=== PATIENT | female | born 1985 | race African-American/Black ===

== ENCOUNTER 2018-10-07 01:03 | Emergency (ER) | payer OTHER ==
[~2018-10-07] VITALS: Ht 162.6 cm; Wt 60.3 kg
--- NOTE | 2018-10-07 01:23 | ED.ADGEN ---
Past History Past Medical History: STD, UTI Past Medical History G4, T1, Induced 1, Spontaneous Miscarry 1 Adult General Chief Complaint Chief Complaint ".. I think . I am about 4 weeks .. and I started having some abdomen cramping.. and spotting.. this would be my 4 th ... I had one vaginal .. and one induced and one spontaneous miscarry.. I made an apt. at [place] .. 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 Patient localizes pain to lower pelvic area. Rebound is not localized other than low pelvic. No psoas sign. Pt. has had 4 pregnancies. One live vaginally. One induced . And 1 miscarriage. Patient last prior to this one was 1999. Patient has had previous history of Chlamydia in approximately 1999. No hx of trauma. No travel. No hx immunosuppression. Recent diagnosis of UTI. Patient normally follows at [place]. Patient blood type is B+. Patient has not had abdomen ultrasound as yet, but did make an appointment at the women's clinic in [place] Review of Systems Review of Systems Constitutional: Denies fever or chills [] Eyes: Denies change in visual acuity, redness, or eye pain [] HENT: Denies nasal congestion or sore throat [] Respiratory: Denies cough or shortness of breath [] Cardiovascular: No additional information not addressed in [facility] [] GI: Complaints of abdominal pain. Denies nausea, vomiting, bloody stools or diarrhea [] : Denies dysuria or hematuria []Vaginal spotting. Musculoskeletal: Denies back pain or joint pain [] Integument: Denies rash or skin lesions [] Neurologic: Denies headache, focal weakness or sensory changes [] Endocrine: Denies polyuria or polydipsia [] All other systems were reviewed and found to be within normal limits, except as documented in this note. Family History Family History Non-contributory Current Medications Current Medications Current Medications Medications (Trade) Dose Ordered Sig/Deven Start Time Stop Time Status Last Admin Dose Admin Lactated Ringer's 1,000 ml @ 1,000 mls/hr Q1H 10/07/18 01:30 10/07/18 02:29 DC Oxycodone/ Acetaminophen (Percocet 5/325) 2 tab 1X ONCE 10/07/18 04:15 10/07/18 04:16 UNV 10/07/18 04:22 2 TAB Allergies Allergies Allergies Coded Allergies Type Severity Reaction Last Updated Verified No Known Drug Allergies 10/07/18 No Physical Exam Physical Exam Constitutional: Well developed, well nourished,moderated distress, non-toxic appearance. [] HENT: Normocephalic, atraumatic, bilateral external ears normal, oropharynx moist, no oral exudates, nose normal. [] Eyes: PERRLA, EOMI, conjunctiva normal, no discharge. [] Neck: Normal range of motion, no tenderness, supple, no stridor. [] Cardiovascular:Heart rate regular rhythm, no murmur [] Lungs & Thorax: Bilateral breath sounds equal at apexes on auscultation [] Abdomen: Bowel sounds normal, soft, pelvic tenderness, no masses, no pulsatile masses. [] Pelvic- bleeding from os. Os appear closed. Some Rt. adnexal ten derness. No true rebound localization. Skin: Warm, dry, no erythema, no rash. [] Back: No tenderness, no CVA tenderness. [] Extremities: No tenderness, no cyanosis, no clubbing, ROM intact, no edema. [] No psoas sign. Neurologic: Alert and oriented X 3, normal motor function, normal sensory functi on, no focal deficits noted. [] Psychologic: Affect anxious, judgement normal, mood normal. [] Current Patient Data Lab Results Laboratory Tests Test 10/07/18 02:05 10/07/18 04:15 White Blood Count 7.5 x10^3/uL (4.0-11.0) Red Blood Count 4.43 x10^6/uL (3.50-5.40) Hemoglobin 13.2 g/dL (12.0-15.5) Hematocrit 38.9 % (36.0-47.0) Mean Corpuscular Volume 88 fL (79-100) Mean Corpuscular Hemoglobin 30 pg (25-35) Mean Corpuscular Hemoglobin Concent 34 g/dL (31-37) Red Cell Distribution Width 13.0 % (11.5-14.5) Platelet Count 339 x10^3/uL (140-400) Neutrophils (%) (Auto) 50 % (31-73) Lymphocytes (%) (Auto) 42 % (24-48) Monocytes (%) (Auto) 6 % (0-9) Eosinophils (%) (Auto) 3 % (0-3) Basophils (%) (Auto) 0 % (0-3) Neutrophils # (Auto) 3.7 x10^3uL (1.8-7.7) Lymphocytes # (Auto) 3.1 x10^3/uL (1.0-4.8) Monocytes # (Auto) 0.4 x10^3/uL (0.0-1.1) Eosinophils # (Auto) 0.2 x10^3/uL (0.0-0.7) Basophils # (Auto) 0.0 x10^3/uL (0.0-0.2) Prothrombin Time 10.1 SEC (9.4-11.4) Prothrombin Time INR 1.0 (0.9-1.1) PTT 25 SEC (23-33) Maternal Serum HCG Beta Subunit 1880 mIU/mL (0-6) H Sodium Level 138 mmol/L (136-145) Potassium Level 3.7 mmol/L (3.5-5.1) Chloride Level 104 mmol/L (98-107) Carbon Dioxide Level 25 mmol/L (21-32) Anion Gap 9 (6-14) Blood Urea Nitrogen 10 mg/dL (7-20) Creatinine 0.8 mg/dL (0.6-1.0) Estimated GFR (Cockcroft-Gault) 98.8 Glucose Level 84 mg/dL (70-99) Calcium Level 9.3 mg/dL (8.5-10.1) Total Bilirubin 0.5 mg/dL (0.2-1.0) Direct Bilirubin 0.1 mg/dL (0.0-0.2) Aspartate Amino Transferase (AST) 15 U/L (15-37) Alanine Aminotransferase (ALT) 27 U/L (14-59) Alkaline Phosphatase 67 U/L (46-116) Total Protein 7.7 g/dL (6.4-8.2) Albumin 3.8 g/dL (3.4-5.0) Lipase 69 U/L (73-393) L Urine Collection Type Void Urine Color Straw Urine Clarity Hazy Urine pH 6.5 Urine Specific Friend 1.010 Urine Protein Neg (NEG-TRACE) Urine Glucose (UA) Neg mg/dL (NEG) Urine Ketones (Stick) Neg mg/dL (NEG) Urine Blood Large (NEG) Urine Nitrite Neg (NEG) Urine Bilirubin Neg (NEG) Urine Urobilinogen Dipstick 0.2 mg/dL (0.2 mg/dL) Urine Leukocyte Esterase Neg (NEG) Urine RBC 11-20 /HPF (0-2) Urine WBC 0 /HPF (0-4) Urine Squamous Epithelial Cells Occ /LPF Urine Bacteria Few /HPF (0-FEW) Microbiology 10/07/18 Wet Prep - Preliminary, Resulted EKG EKG [] Radiology/Procedures Radiology/Procedures Ultrasound shows no intrauterine . Does have a thick walled cystic lesion right ovary which may represent an ectopic or corpus luteal cyst. See formal report[] Course & Med Decision Making Course & Med Decision Making Pertinent Labs and Imaging studies reviewed. (See chart for details). Discussed presentation testing and ultrasound with Dr. Correa. Advised to have patient keep follow-up at clinic in [place] on Tuesday as scheduled. Patient also follow up pending cultures. Current labs that are available and ultrasound report given to patient for follow-up. Patient keep follow-up at [place]. Recommended daily vitamin. Recommended pelvic rest. May take Tylenol for pain. Continue monitor bleeding. [] Final Impression Final Impression 1. Threaten Miscarry[] 2. Possible Ectopic vs. Corpus Luteal Cyst 3. B- HCG 1880 4. Blood Type B + Dragon Disclaimer Dragon Disclaimer This electronic medical record was generated, in whole or in part, using a voice recognition dictation system. Discharge Summary Visit Information Final Diagnosis Problems Medical Problems: (1) Abdominal pain affecting Status: Acute (2) Ectopic of ovary Status: Acute (3) Pain in the abdomen Status: Acute Brief Hospital Course Allergies Allergies Coded Allergies Type Severity Reaction Last Updated Verified No Known Drug Allergies 10/07/18 No Lab Results Laboratory Tests Test 10/07/18 02:05 10/07/18 04:15 White Blood Count 7.5 x10^3/uL (4.0-11.0) Red Blood Count 4.43 x10^6/uL (3.50-5.40) Hemoglobin 13.2 g/dL (12.0-15.5) Hematocrit 38.9 % (36.0-47.0) Mean Corpuscular Volume 88 fL (79-100) Mean Corpuscular Hemoglobin 30 pg (25-35) Mean Corpuscular Hemoglobin Concent 34 g/dL (31-37) Red Cell Distribution Width 13.0 % (11.5-14.5) Platelet Count 339 x10^3/uL (140-400) Neutrophils (%) (Auto) 50 % (31-73) Lymphocytes (%) (Auto) 42 % (24-48) Monocytes (%) (Auto) 6 % (0-9) Eosinophils (%) (Auto) 3 % (0-3) Basophils (%) (Auto) 0 % (0-3) Neutrophils # (Auto) 3.7 x10^3uL (1.8-7.7) Lymphocytes # (Auto) 3.1 x10^3/uL (1.0-4.8) Monocytes # (Auto) 0.4 x10^3/uL (0.0-1.1) Eosinophils # (Auto) 0.2 x10^3/uL (0.0-0.7) Basophils # (Auto) 0.0 x10^3/uL (0.0-0.2) Prothrombin Time 10.1 SEC (9.4-11.4) Prothromb Time International Ratio 1.0 (0.9-1.1) Activated Partial Thromboplast Time 25 SEC (23-33) Maternal Serum HCG Beta Subunit 1880 mIU/mL (0-6) Sodium Level 138 mmol/L (136-145) Potassium Level 3.7 mmol/L (3.5-5.1) Chloride Level 104 mmol/L (98-107) Carbon Dioxide Level 25 mmol/L (21-32) Anion Gap 9 (6-14) Blood Urea Nitrogen 10 mg/dL (7-20) Creatinine 0.8 mg/dL (0.6-1.0) Estimated GFR (Cockcroft-Gault) 98.8 Glucose Level 84 mg/dL (70-99) Calcium Level 9.3 mg/dL (8.5-10.1) Total Bilirubin 0.5 mg/dL (0.2-1.0) Direct Bilirubin 0.1 mg/dL (0.0-0.2) Aspartate Amino Transf (AST/SGOT) 15 U/L (15-37) Alanine Aminotransferase (ALT/SGPT) 27 U/L (14-59) Alkaline Phosphatase 67 U/L (46-116) Total Protein 7.7 g/dL (6.4-8.2) Albumin 3.8 g/dL (3.4-5.0) Lipase 69 U/L (73-393) Urine Collection Type Void Urine Color Straw Urine Clarity Hazy Urine pH 6.5 Urine Specific Friend 1.010 Urine Protein Neg (NEG-TRACE) Urine Glucose (UA) Neg mg/dL (NEG) Urine Ketones (Stick) Neg mg/dL (NEG) Urine Blood Large (NEG) Urine Nitrite Neg (NEG) Urine Bilirubin Neg (NEG) Urine Urobilinogen Dipstick 0.2 mg/dL (0.2 mg/dL) Urine Leukocyte Esterase Neg (NEG) Urine RBC 11-20 /HPF (0-2) Urine WBC 0 /HPF (0-4) Urine Squamous Epithelial Cells Occ /LPF Urine Bacteria Few /HPF (0-FEW) Brief Hospital Course Ms. Myles is a 33 old female who presented with abdomen pain and spotting. Possible Ectopic vs corpus luteal cyst. Follow up at [place] on tuesday. Discharge Information Condition at Discharge: Improved, Stable Disposition/Orders: D/C to Home Dischare Medications Current Medications Lactated Ringer's 1,000 ml @ 1,000 mls/hr Q1H IV ; Start 10/07/18 at 01:30; Stop 10/07/18 at 02:29; Status DC Oxycodone/ Acetaminophen (Percocet 5/325) 2 tab 1X ONCE PO Last administered on 10/07/18at 04:22; Admin Dose 2 TAB; Start 10/07/18 at 04:15; Stop 10/07/18 at 04:16; Status UNV Active Scripts Active Vitamins ( Vits W-Ca,Fe,Fa(<1MG)) 1 Each Tablet 1 Each PO DAILY Percocet 5-325 Mg Tablet (Oxycodone Hcl/Acetaminophen) 1 Each Tablet 1 Tab PO PRN Q6HRS PRN Tylenol (Acetaminophen) 325 Mg Tablet 650 Mg PO QIDPRN PRN Dragon Disclaimer This chart was dictated in whole or in part using Voice Recognition software in a busy, high-work load, and often noisy Emergency Department environment. It may contain unintended and wholly unrecognized errors or omissions. TELMA EVANS MD Oct 07, 2018 01:23
[2018-10-07] MEDS ORDERED: IV RINGERS SOLUTION,LACTATED 1,000 ML IV SCH (01:30)
[2018-10-07 02:23] LABS: BASO % 0 % (0-3); EOS # 0.2 x10^3/uL (0.0-0.7); EOS % 3 % (0-3); HEMATOCRIT 38.9 % (36.0-47.0); HEMOGLOBIN 13.2 g/dL (12.0-15.5); LYMPH # 3.1 x10^3/uL (1.0-4.8); LYMPH % 42 % (24-48); MEAN CORPUSCULAR HEMOGLOBIN 30 pg (25-35); MEAN CORPUSCULAR HGB CONC 34 g/dL (31-37); MEAN CORPUSCULAR VOLUME 88 fL (79-100); MONO # 0.4 x10^3/uL (0.0-1.1); MONO % 6 % (0-9); NEUT # 3.7 x10^3uL (1.8-7.7); NEUT % 50 % (31-73); PLATELET COUNT 339 x10^3/uL (140-400); RED BLOOD COUNT 4.43 x10^6/uL (3.50-5.40); WHITE BLOOD COUNT 7.5 x10^3/uL (4.0-11.0)
[2018-10-07 02:41] LABS: ALBUMIN 3.8 g/dL (3.4-5.0); CALCIUM 9.3 mg/dL (8.5-10.1); CREATININE 0.8 mg/dL (0.6-1.0); DIRECT BILIRUBIN 0.1 mg/dL (0.0-0.2); GFR 98.8; POTASSIUM 3.7 mmol/L (3.5-5.1); TOTAL BILIRUBIN 0.5 mg/dL (0.2-1.0); TOTAL PROTEIN 7.7 g/dL (6.4-8.2)
--- NOTE | 2018-10-07 03:21 | RAD ---
Indication:Bleeding in . TECHNIQUE: Ultrasound OB less than 14 weeks. COMPARISON: None FINDINGS: Uterus is anteverted and measures 8.3 x 4.3 x 4.7 cm (longitudinal, AP, transverse). Cervix is closed. Endometrial stripe measures 1.0 cm in thickness and is within normal limits. No gestation sac seen. Cervical length measures 3.7 cm. Left ovary demonstrates evidence of blood flow and measures 1.5 x 2.8 x 1.4 cm. Right ovary measures 2.2 x 4.5 x 1.5 cm with a thick walled centrally cystic lesion measuring 2.0 x 1.8 x 2.1 cm. There is circumferential blood flow "ring of fire" around this lesion. Right ovary demonstrates evidence of blood flow. Small amount of free pelvic fluid. IMPRESSION: 1. No intrauterine gestation sac seen. 2. Thick-walled centrally cystic lesion in the right ovary may represent an ectopic or corpus luteal cyst of . Clinically correlate with beta-hCG. Direct comparison with recent ultrasound if performed demonstrating intrauterine is recommended. Electronically signed by: Medhat Lancaster DO (10/07/2018 3:18 AM) [id number]
[2018-10-07] MEDS ORDERED: oxyCODONE/APAP 5/325 1 TAB TABLET PO ONE (04:15)
[2018-10-07] MEDS ORDERED: oxyCODONE/APAP 5/325 1 TAB TABLET ONE (04:19)
[2018-10-07] MEDS ORDERED: ACET325T9 PO (04:23)
[2018-10-07] MEDS ORDERED: OXYC1TAB15 PO (04:23)
[2018-10-07] MEDS ORDERED: PREN1TAB58 PO (04:48)
[2018-10-07 05:02] LABS: CLARITY,URINE HAZY; COLOR,URINE STRAW
[2018-10-07 05:03] LABS: BACTERIA,URINE FEW /HPF (0-FEW); BILIRUBIN,URINE NEG (NEG); GLUCOSE,URINE NEG (NEG); NITRITE,URINE NEG (NEG); SQUAMOUS EPITHELIAL CELL,UR OCC /LPF; UROBILINOGEN,URINE 0.2 mg/dL (0.2 mg/dL); WBC,URINE 0 /HPF (0-4)
[2018-10-07 05:05] VITALS: BP 120/56
[2018-10-07 05:08] LABS: BARBITURATES NEG (NEG); BENZODIAZEPINES NEG (NEG); CANNABINOIDS NEG (NEG); COCAINE NEG (NEG); METHADONE NEG (NEG); OPIATES NEG (NEG); PHENCYCLIDINE NEG (NEG)
[2018-10-07 05:10] LABS: AMPHETAMINE/METHAMPHETAMINE NEG (NEG)
[2018-10-09 15:10] LABS: CHLAMYDIA PROBE Negative (Negative)
== END 2018-10-07 05:05 | disposition home or self-care (01) ==
LOC: ER 01:03
DX: O20.0 Threatened abortion (principal); O00.201 Right ovarian pregnancy without intrauterine pregnancy; O23.41 Unspecified infection of urinary tract in pregnancy, first trimester; Z3A.01 Less than 8 weeks gestation of pregnancy
CPT/HCPCS: 36415; 76801; 76817; 80048; 80076; 80307; 81001; 83690; 84443; 84702; 85025; 85610; 85730; 86592; 86703; 86705; 86709; 86803; 86900; 86901; 87340; 87491; 87591; 99285; Q0111

== ENCOUNTER 2018-10-08 17:15 | Emergency (ER) | payer OTHER ==
[~2018-10-08] VITALS: Ht 162.6 cm; Wt 60.3 kg
[~2018-10-08 17:15] MED LIST: ACET325T9 PO; OXYC1TAB15 PO; PREN1TAB58 PO
[2018-10-08] MEDS ORDERED: IV NORMAL SALINE 500ML 500 ML IV SCH (17:45)
--- NOTE | 2018-10-08 17:57 | PHYS DOC ---
Past History Past Medical History: STD, UTI (EMEKA COLLIER DO) Past Surgical History: Other (EMEKA COLLIER DO) Alcohol Use: None Drug Use: None (EMEKA COLLIER DO) Adult General Chief Complaint Chief Complaint: DIZZY/LIGHT HEADED HPI HPI Patient is a 33-year-old female presents with increasing vaginal bleeding. She was seen a day ago, diagnosed with threatened miscarriage versus ectopic . Shortly before arriving today noted increased bleeding, feeling lightheaded, no chest pain or palpitations. No significant abdominal pain. She is 4 para 1021 with 2 prior miscarriages after her one live . Her son is 8 years old. Patient was noted to be blood type B positive yesterday. She had an abnormal ultrasound yesterday as well.[] (EMEKA COLLIER DO) Review of Systems Review of Systems Constitutional: Denies fever or chills [] Eyes: Denies change in visual acuity, redness, or eye pain [] HENT: Denies nasal congestion or sore throat [] Respiratory: Denies cough or shortness of breath [] Cardiovascular: No additional information not addressed in HPI [] GI: Denies abdominal pain, nausea, vomiting, bloody stools or diarrhea [] : Denies dysuria or hematuria [] Musculoskeletal: Denies back pain or joint pain [] Integument: Denies rash or skin lesions [] Neurologic: Denies headache, focal weakness or sensory changes [] Endocrine: Denies polyuria or polydipsia [] All other systems were reviewed and found to be within normal limits, except as documented in this note. (EMEKA COLLIER DO) Current Medications Current Medications Current Medications Medications (Trade) Dose Ordered Sig/Deven Start Time Stop Time Status Last Admin Dose Admin Sodium Chloride 500 ml @ 500 mls/hr Q1H 10/08/18 17:45 UNV (EMEKA COLLIER DO) Allergies Allergies Allergies Coded Allergies Type Severity Reaction Last Updated Verified No Known Drug Allergies 10/07/18 No (EMEKA COLLIER DO) Physical Exam Physical Exam Constitutional: Well developed, well nourished, no acute distress, non-toxic appearance. [] HENT: Normocephalic, atraumatic, bilateral external ears normal, oropharynx moist, no oral exudates, nose normal. [] Eyes: PERRLA, EOMI, conjunctiva normal, no discharge. [] Neck: Normal range of motion, no tenderness, supple, no stridor. [] Cardiovascular:Heart rate regular rhythm, no murmur [] Lungs & Thorax: Bilateral breath sounds clear to auscultation [] Abdomen: Bowel sounds normal, soft, no tenderness, no masses, no pulsatile masses. [] Skin: Warm, dry, no erythema, no rash. [] Back: No tenderness, no CVA tenderness. [] Extremities: No tenderness, no cyanosis, no clubbing, ROM intact, no edema. [] Neurologic: Alert and oriented X 3, normal motor function, normal sensory function, no focal deficits noted. [] Psychologic: Affect normal, judgement normal, mood normal. [] (EMEKA COLLIER DO) Current Patient Data Vital Signs Vital Signs Date Time Temp Pulse Resp B/P (MAP) Pulse Ox O2 Delivery O2 Flow Rate FiO2 10/08/18 17:31 Room Air 10/08/18 17:31 98.2 72 20 100 (EMEKA COLLIER DO) EKG EKG [] (EMEKA COLLIER DO) Radiology/Procedures Radiology/Procedures [] (EMEKA COLLIER DO) Impressions: The patient's ultrasound shows a more complex mass in the right adnexa. This was relayed by telephone from the radiologist. He states there is a computer problem that prevents him from inputting official reports. (RON RECINOS DO) Course & Med Decision Making Course & Med Decision Making Pertinent Labs and Imaging studies reviewed. (See chart for details) ED course: Patient arrived, was placed in bed, in tolerated exam well. She had IV access established and laboratory testing obtained. Patient care was endorsed to the nighttime physician at 1800.[] (EMEKA COLLIER DO) Course & Med Decision Making The patient's ultrasound suggests increasing complexity of the right adnexal mass. Her beta hCG is increasing. It is still not definitive whether or not this is a tubal . It does seem more likely at this time. I discussed the case with OB, Dr. Fernández and he felt the patient could be safely discharged with close follow-up tomorrow. The patient has an appointment already tomorrow with her OB. The patient is very emotional about this and is a bit scared. He reassured her that if anything changes in her condition and she feels like she needs to come back, we will be available for her. She is stable for discharge at this time. (RON RECINOS DO) Dragon Disclaimer Dragon Disclaimer This electronic medical record was generated, in whole or in part, using a voice recognition dictation system. (EMEKA COLLIER DO) Departure Departure: Disposition: 01 HOME, SELF-CARE Condition: STABLE Referrals: GINETTE VELASQUEZ PA-C (PCP) EMEKA COLLIER DO Oct 08, 2018 17:56 RON RECINOS DO Oct 08, 2018 21:11
[2018-10-08 18:16] LABS: BASO % 1 % (0-3); EOS # 0.2 x10^3/uL (0.0-0.7); EOS % 2 % (0-3); HEMATOCRIT 42.1 % (36.0-47.0); HEMOGLOBIN 14.3 g/dL (12.0-15.5); LYMPH % 41 % (24-48); MEAN CORPUSCULAR HEMOGLOBIN 30 pg (25-35); MEAN CORPUSCULAR HGB CONC 34 g/dL (31-37); MEAN CORPUSCULAR VOLUME 88 fL (79-100); MONO # 0.4 x10^3/uL (0.0-1.1); MONO % 6 % (0-9); NEUT # 3.7 x10^3uL (1.8-7.7); NEUT % 50 % (31-73); PLATELET COUNT 372 x10^3/uL (140-400); RED BLOOD COUNT 4.78 x10^6/uL (3.50-5.40); RED CELL DISTRIBUTION WIDTH 12.7 % (11.5-14.5); WHITE BLOOD COUNT 7.3 x10^3/uL (4.0-11.0)
[2018-10-08 20:50] VITALS: BP 104/71
--- NOTE | 2018-10-09 10:56 | RAD ---
Examination: Obstetric ultrasound less than 14 weeks HISTORY: History of increasing vaginal bleeding, abnormal ultrasound follow-up COMPARISON: 10/07/2018 This is a downtime report dictated the next day as the PACS was down on the day of examination. Report was called to the ordering physician immediately after time of examination. FINDINGS: The uterus measures 9.2 x 4.5 x 3.8 cm. The cervical length measures 4.2 cm with endometrium measures 3.8 mm in thickness. Free fluid identified in the cul-de-sac which appears somewhat complicated. The right ovary measures 3.9 x 2.2 x 1.5 cm. The left ovary measures 2.6 x 2.0 x 1.2 cm. No evidence of intrauterine gestational sac or pole identified. There is a complex appearing cystic structure identified in the right adnexa extending to the cul-de-sac which is a somewhat more echogenic compared to prior exam could be a clot. Ectopic is not excluded other possibility includes complex adnexal cyst or mass. IMPRESSION: 1. No evidence of intrauterine gestational sac or pole identified. There is a complex appearing cystic structure identified in the right adnexa extending to the cul-de-sac which is a somewhat more echogenic compared to prior exam could be a clot. Ectopic is not excluded other possibility includes complex adnexal cyst or mass. Correlate clinically and with beta-hCG levels. Ordering physician was informed at time of examination.. Electronically signed by: Oumar Baird MD (10/09/2018 10:54 AM) [facility]
== END 2018-10-08 20:55 | disposition home or self-care (01) ==
LOC: ER 17:15
DX: O46.91 Antepartum hemorrhage, unspecified, first trimester (principal); N85.8 Other specified noninflammatory disorders of uterus; R42 Dizziness and giddiness; O23.41 Unspecified infection of urinary tract in pregnancy, first trimester; Z3A.01 Less than 8 weeks gestation of pregnancy
CPT/HCPCS: 36415; 76801; 76817; 84702; 85025; 96360; 99285; J7040

== ENCOUNTER 2018-11-17 13:37 | Emergency (ER) | payer OTHER ==
[~2018-11-17] VITALS: Ht 162.6 cm; Wt 64.5 kg
[2018-11-17 14:11] VITALS: BP 120/71
--- NOTE | 2018-11-17 14:12 | PHYS DOC ---
Past History Past Medical History: STD, UTI Past Surgical History: Other Alcohol Use: None Drug Use: None Adult General Chief Complaint Chief Complaint: VAGINAL PROBLEM HPI HPI Patient is a 33-year-old female who presents with complaint of vaginal pain. Patient states that she had been having intercourse last night she felt a sharp pain in her vagina. She states the majority of the pain has resolved but still has mild vague discomfort. Patient had also been seen at [facility] yesterday and had been tested for STDs. She states that she just wants to have a vaginal exam to make sure that no trauma occurred. She denies any fever. She denies any significant vaginal discharge, abdominal pain, nausea or vomiting.[] Review of Systems Review of Systems Constitutional: Denies fever or chills [] Respiratory: Denies cough or shortness of breath [] Cardiovascular: No additional information not addressed in HPI [] GI: Denies abdominal pain, nausea, vomiting or diarrhea [] : Positive vaginal discharge and vaginal pain[] All other systems were reviewed and found to be within normal limits, except as documented in this note. Allergies Allergies Allergies Coded Allergies Type Severity Reaction Last Updated Verified No Known Drug Allergies 10/07/18 No Physical Exam Physical Exam Constitutional: Well developed, well nourished, no acute distress, non-toxic appearance. [] HENT: Normocephalic, atraumatic, bilateral external ears normal, oropharynx m oist, no oral exudates, nose normal. [] Eyes: PERRLA, EOMI, conjunctiva normal, no discharge. [] Neck: Normal range of motion, no tenderness, supple, no stridor. [] Cardiovascular:Heart rate regular rhythm, no murmur [] Lungs & Thorax: Bilateral breath sounds clear to auscultation [] Abdomen: Bowel sounds normal, soft, no tenderness. [] Skin: Warm, dry, no erythema, no rash. [] : Vaginal exam performed with nurse chute builder present. No acute trauma identified. [] Extremities: No tenderness, no cyanosis, no clubbing, ROM intact, no edema. [] EKG EKG [] Radiology/Procedures Radiology/Procedures [] Course & Med Decision Making Course & Med Decision Making Pertinent Labs and Imaging studies reviewed. (See chart for details) [] Dragon Disclaimer Dragon Disclaimer This electronic medical record was generated, in whole or in part, using a voice recognition dictation system. Departure Departure: Impression: Primary Impression: Vaginal pain Disposition: 01 HOME, SELF-CARE Condition: STABLE Referrals: PCP,UNKNOWN (PCP) Patient Instructions: Pelvic Pain, Female CHUCK ALEXANDRE Jr. DO Nov 17, 2018 14:12
== END 2018-11-17 14:49 | disposition home or self-care (01) ==
LOC: ER 13:37
DX: R10.2 Pelvic and perineal pain (principal); N89.8 Other specified noninflammatory disorders of vagina; Z87.440 Personal history of urinary (tract) infections
CPT/HCPCS: 99283

== ENCOUNTER 2019-04-01 16:30 | Emergency (ER) | payer OTHER ==
[~2019-04-01] VITALS: Ht 162.6 cm; Wt 62.0 kg
--- NOTE | 2019-04-01 17:56 | PHYS DOC ---
Past History Past Medical History: STD, UTI Past Surgical History: Other Alcohol Use: None Drug Use: None Adult General Chief Complaint Chief Complaint: EYE PROBLEMS ".. I was skating the other day.. and I fell and hit my head.. but today I noticed I seem to have floaters in both eyes.. .they are gone now.. but I went to urgent care clinic and they said I probably should go to ER and maybe get a CT of my head I am fine now..." [facility] HPI Patient is a 34 year old female who presents with above hx and complaints of eye floaters. Has had recent head injury. No loss of consciousness. No vision changes that time of injury. Patient has no headache at this time. No neck pain. No visual changes. Patient normally follows at [facility]. Patient up-to-date with vaccinations. No recent travel. No redness sinus recently. Patient is normally healthy. Patient currently has no eye symptoms. No head pain. No neck pain.. Follows with DAPH[facility] Review of Systems Review of Systems Constitutional: Denies fever or chills [] Eyes: Denies change in visual acuity, redness, or eye pain []Pt. gives history of eye floaters- both eyes. HENT: Denies nasal congestion or sore throat [] Respiratory: Denies cough or shortness of breath [] Cardiovascular: No additional information not addressed in HPI [] GI: Denies abdominal pain, nausea, vomiting, bloody stools or diarrhea [] : Denies dysuria or hematuria [] Musculoskeletal: Denies back pain or joint pain [] Integument: Denies rash or skin lesions [] Neurologic: Denies headache, focal weakness or sensory changes [] Endocrine: Denies polyuria or polydipsia [] All other systems were reviewed and found to be within normal limits, except as documented in this note. Family History Family History Noncontributory Current Medications Current Medications See nursing for home meds Allergies Allergies Allergies Coded Allergies Type Severity Reaction Last Updated Verified No Known Drug Allergies 10/07/18 No Physical Exam Physical Exam Constitutional: Well developed, well nourished, no acute distress, non-toxic appearance. [] HENT: Normocephalic, atraumatic, bilateral external ears normal, oropharynx moist, no oral exudates, nose normal. [] Eyes: PERRLA, EOMI, conjunctiva normal, no discharge. [] Fundus exam is limited but no gross findings. No cell. No flare. Neck: Normal range of motion, no tenderness, supple, no stridor. [] Cardiovascular:Heart rate regular rhythm, no murmur [] Lungs & Thorax: Bilateral breath sounds clear to auscultation [] Abdomen: Bowel sounds normal, soft, no tenderness, no masses, no pulsatile masses. [] Skin: Warm, dry, no erythema, no rash. [] Back: No tenderness, no CVA tenderness. [] Extremities: No tenderness, no cyanosis, no clubbing, ROM intact, no edema. [] Neurologic: Alert and oriented X 3, normal motor function, normal sensory function, no focal deficits noted. [] Psychologic: Affect normal, judgement normal, mood normal. [] Current Patient Data Vital Signs Vital Signs Date Time Temp Pulse Resp B/P (MAP) Pulse Ox O2 Delivery O2 Flow Rate FiO2 04/01/19 16:30 97.9 74 16 122/81 (95) 100 Room Air EKG EKG [] Radiology/Procedures Radiology/Procedures Patient deferred CT at this time.[] Course & Med Decision Making Course & Med Decision Making Pertinent Labs and Imaging studies reviewed. (See chart for details) Patient return if any concerns or changes in vision, redness or pain. Patient to follow-up at [facility]. Patient to get a full dilated exam with ophthalmology. Patient avoid NSAIDs until follow-up. May take Tylenol for any discomfort. Impression: 1. Hx of Eye Floaters Note there was a computer fever during the workup this patient. There may be missing information or duplication of record Dragon Disclaimer Dragon Disclaimer This electronic medical record was generated, in whole or in part, using a voice recognition dictation system. Departure Departure: Disposition: HOME/RESIDENCE PRIOR TO ADM Condition: STABLE Referrals: GINETTE VELASQUEZ PA-C (PCP) Hi Disclaimer This chart was dictated in whole or in part using Voice Recognition software in a busy, high-work load, and often noisy Emergency Department environment. It may contain unintended and wholly unrecognized errors or omissions. Dragon Disclaimer This chart was dictated in whole or in part using Voice Recognition software in a busy, high-work load, and often noisy Emergency Department environment. It may contain unintended and wholly unrecognized errors or omissions. TELMA EVANS MD Apr 01, 2019 17:56
[2019-04-01 19:20] VITALS: BP 114/80
== END 2019-04-01 19:20 | disposition home or self-care (01) ==
LOC: ER 16:30
DX: H43.393 Other vitreous opacities, bilateral (principal); Z87.440 Personal history of urinary (tract) infections
CPT/HCPCS: 99283

== ENCOUNTER 2019-07-26 06:51 | Emergency (ER) | payer OTHER ==
[~2019-07-26] VITALS: Ht 162.6 cm; Wt 64.1 kg
[2019-07-26 06:55] VITALS: BP 122/81
[2019-07-26] MEDS ORDERED: AZITHROMYCIN 250 MG TABLET. PO ONE (07:45)
[2019-07-26] MEDS ORDERED: cefTRIAXone IM 250 MG VIAL IM ONE (07:45)
[2019-07-26 08:07] LABS: BILIRUBIN,URINE NEG (NEG); CLARITY,URINE HAZY; COLOR,URINE YELLOW; GLUCOSE,URINE NEG (NEG)
[2019-07-26 08:08] LABS: BACTERIA,URINE FEW /HPF (0-FEW); NITRITE,URINE NEG (NEG); SQUAMOUS EPITHELIAL CELL,UR MANY /LPF; UROBILINOGEN,URINE 0.2 mg/dL (0.2 mg/dL)
[2019-07-26] MEDS ORDERED: METR500T PO (08:27)
--- NOTE | 2019-07-26 08:28 | PHYS DOC ---
Past History Past Medical History: GERD, Migraines, Other Additional Past Medical Histor: Alopecia Past Surgical History: Other Additional Past Surgical Histo: ectopic surgery Alcohol Use: None Drug Use: None Adult General Chief Complaint Chief Complaint: ABDOMINAL PAIN HPI HPI Patient is a 34-year-old female who presents with complaint of urinary frequency and mild urgency for the last couple of days. Patient denies any actual dysuria. She denies any vaginal discharge but does indicate that she recently had unprotected intercourse with a new partner and is worried about the possibility of an STD. Patient denies any fever. She denies any nausea, vomiting or diarrhea. She does admit to some pressure in her suprapubic region.[] Review of Systems Review of Systems Constitutional: Denies fever or chills [] Respiratory: Denies cough or shortness of breath [] Cardiovascular: No additional information not addressed in HPI [] GI: Denies abdominal pain, nausea, vomiting or diarrhea [] : Denies dysuria or hematuria. Positive urinary frequency [] Neurologic: Denies headache, focal weakness or sensory changes [] Current Medications Current Medications Current Medications Medications (Trade) Dose Ordered Sig/Deven Start Time Stop Time Status Last Admin Dose Admin Azithromycin (Zithromax) 500 mg 1X ONCE 07/26/19 07:45 07/26/19 07:46 DC Ceftriaxone Sodium (Rocephin Im) 250 mg 1X ONCE 07/26/19 07:45 07/26/19 07:46 DC Allergies Allergies Allergies Coded Allergies Type Severity Reaction Last Updated Verified No Known Drug Allergies 10/07/18 No Physical Exam Physical Exam Constitutional: Well developed, well nourished, no acute distress, non-toxic appearance. [] Neck: Normal range of motion, no tenderness, supple, no stridor. [] Cardiovascular: Regular rate and rhythm[] Lungs & Thorax: Bilateral breath sounds clear to auscultation [] Abdomen: Bowel sounds normal, soft, no tenderness. [] Skin: Warm, dry, no erythema, no rash. [] Current Patient Data Lab Results Laboratory Tests Test 07/26/19 07:19 07/26/19 07:21 Urine Collection Type Unknown Urine Color Yellow Urine Clarity Hazy Urine pH 6.5 Urine Specific [place] 1.020 Urine Protein Neg (NEG-TRACE) Urine Glucose (UA) Neg mg/dL (NEG) Urine Ketones (Stick) Neg mg/dL (NEG) Urine Blood Neg (NEG) Urine Nitrite Neg (NEG) Urine Bilirubin Neg (NEG) Urine Urobilinogen Dipstick 0.2 mg/dL (0.2 mg/dL) Urine Leukocyte Esterase Neg (NEG) Urine RBC 1-2 /HPF (0-2) Urine WBC 1-4 /HPF (0-4) Urine Squamous Epithelial Cells Many /LPF Urine Bacteria Few /HPF (0-FEW) Urine Mucus Slight /LPF POC Urine HCG, Qualitative hcg negative (Negative) EKG EKG [] Radiology/Procedures Radiology/Procedures [] Course & Med Decision Making Course & Med Decision Making Pertinent Labs and Imaging studies reviewed. (See chart for details) [] Dragon Disclaimer Dragon Disclaimer This electronic medical record was generated, in whole or in part, using a voice recognition dictation system. Departure Departure: Impression: Primary Impression: Concern about STD in female without diagnosis Disposition: 01 HOME, SELF-CARE Condition: STABLE Referrals: GINETTE VELASQUEZ PA-C (PCP) Patient Instructions: Sexually Transmitted Disease, [id number] Scripts Metronidazole (FLAGYL) 500 Mg Tablet 1 TAB PO BID for empiric tx, #14 TAB Prov: CHUCK ALEXANDRE Jr. DO 07/26/19 CHUCK ALEXANDRE Jr. DO Jul 26, 2019 08:28
[2019-07-26] MEDS ORDERED: LIDOCAINE 1% Multi-Dose 20 ML VIAL. ONE (08:33)
== END 2019-07-26 09:05 | disposition home or self-care (01) ==
LOC: ER 06:51
DX: Z20.2 Contact with and (suspected) exposure to infections with a predominantly sexual mode of transmission (principal); G43.909 Migraine, unspecified, not intractable, without status migrainosus; K21.9 Gastro-esophageal reflux disease without esophagitis
CPT/HCPCS: 36415; 81001; 81025; 87491; 87591; 96372; 99283; J0456; J0696

== ENCOUNTER 2020-09-02 19:02 | Emergency (ER) | payer OTHER ==
[~2020-09-02] VITALS: Ht 162.6 cm; Wt 65.0 kg
[~2020-09-02 19:02] MED LIST changes: +METR500T PO
[2020-09-02 20:46] VITALS: BP 122/68
== END 2020-09-02 20:45 | disposition home or self-care (01) ==
LOC: ER 19:02
DX: O46.91 Antepartum hemorrhage, unspecified, first trimester (principal); R10.30 Lower abdominal pain, unspecified; K21.9 Gastro-esophageal reflux disease without esophagitis; G43.909 Migraine, unspecified, not intractable, without status migrainosus; Z3A.01 Less than 8 weeks gestation of pregnancy
CPT/HCPCS: 36415; 80053; 81001; 81025; 84702; 85025; 96360; 99283; J7030